=== PATIENT | male | born 1955 | race Hispanic/Latino ===

== ENCOUNTER 2018-01-28 16:11 | Emergency (ER) | payer OTHER ==
[2018-01-28 17:30] LABS: #Basophils 0.1 thou/uL (0.0-0.2); #Eosinphils 0.1 thou/uL (0.0-0.7); #Monocytes 0.7 thou/uL (0.11-0.59); #Neutrophils 6.4 thou/uL (1.40-6.50); %Basophils 0.6 % (0.0-1.0); %Eosinophils 0.9 % (0.0-10.0); %Lymphocytes 21.2 % (21.0-51.0); %Neutrophils 69.2 % (42.0-75.0); Hemoglobin 14.8 g/dL (14.0-18.0); Mean Corpuscular HGB CONC 34.7 g/dL (32.0-36.0); Mean Corpuscular Hemoglobin 35.3 pg (27.0-31.0); Mean Platelet Volume 8.7 fL (7.4-10.4); Platelet Count 166 thou/uL (130-400); RBC Distribution Width 12.3 % (11.5-14.5); White Blood Cell (WBC) Count 9.2 thou/uL (4.8-10.8)
--- NOTE | 2018-01-28 17:32 | RAD ---
THREE VIEWS OF THE RIGHT HAND: 01/28/18 INDICATION: Right hand pain and swelling. COMPARISON: Prior exam dated 11/17/14. There is stable healed deformity involving the small finger metacarpal shaft. There is worsening of s ubchondral cyst formation involving the middle phalangeal head of the right ring finger. There is edda e periarticular change involving the DIP joints of the index finger and small finger. There is soft t issue prominence seen involving the right ring finger DIP joint. No additional acute osseous abnormal ity is evident. The lucency and sclerosis seen within the central aspect of the index finger middle p halanx is unchanged and may be related to prior trauma. IMPRESSION: Worsening periarticular erosive change at the DIP joints of the right hand with a prominent subchondr al cyst seen involving the right ring finger middle phalangeal head with soft tissue prominence. Find ings can be seen with entity such as psoriatic or Aishwarya inflammatory arthritis. It can also be seen with an erosive osteoarthropathy. With the soft tissue prominence of the ring digits entity such as gout cannot be excluded. POS: [facility]
--- NOTE | 2018-01-28 17:35 | RAD ---
THREE VIEWS OF THE RIGHT WRIST 01/28/18 INDICATION: Right wrist pain and swelling. COMPARISON: Prior radiograph examination of the right hand dated 11/17/14. FINDINGS: There are vascular calcifications within the soft tissues. The wrist carpus appears intact. There is mild degenerative change at the carpal metacarpal articulation of the fifth digit. There is healed de formity involving the small finger metacarpal shaft. IMPRESSION: 1. No acute osseous abnormality. 2. Remote posttraumatic change involving the hamate-fifth metacarpal articulation as well as the small digit metacarpal shaft. POS: [facility]
[2018-01-28 17:47] LABS: ALT (SGPT) 16 U/L (8-55); AST (SGOT) 17 U/L (5-34); Albumin 3.9 g/dL (3.4-4.8); Alkaline Phosphatase 67 U/L (40-150); Anion Gap 12 mmol/L (10-20); BUN (Urea Nitrogen) 13 mg/dL (8.4-25.7); Bilirubin, Total 0.5 mg/dL (0.2-1.2); CRP (Inflammatory) 7.6 mg/dL (= or < 0.5); Calc. Creatinine Clearance 0 mL/min (70-130); Carbon Dioxide 23 mmol/L (23-31); Chloride 108 mmol/L (98-107); Estimated GFR-MDRD 80; Globulin 3.3 g/dL (2.4-3.5); Glucose 104 mg/dL (80-115); Potassium 3.9 mmol/L (3.5-5.1); Protein, Total 7.2 g/dL (5.8-8.1); Sodium 139 mmol/L (136-145); Uric Acid 8.4 mg/dL (3.5-7.2)
[2018-01-28] MEDS ORDERED: Acetaminophen 500 MG TAB ONE (17:55)
== END 2018-01-28 18:23 | disposition home or self-care (01) ==
LOC: ERS 16:11
DX: L03.113 Cellulitis of right upper limb (principal); M10.9 Gout, unspecified; I10 Essential (primary) hypertension; F17.210 Nicotine dependence, cigarettes, uncomplicated; Z71.6 Tobacco abuse counseling; Z86.73 Personal history of transient ischemic attack (TIA), and cerebral infarction without residual deficits; Z79.899 Other long term (current) drug therapy
CPT/HCPCS: 36415; 80053; 84550; 85025; 85652; 86140; 99406

== ENCOUNTER 2018-12-09 22:30 | Observation (INO) | payer OTHER ==
[2018-12-09 23:20] LABS: #Lymphocytes 1.2 thou/uL (1.20-3.40); #Monocytes 0.9 thou/uL (0.11-0.59); #Neutrophils 11.2 thou/uL (1.40-6.50); %Basophils 0.2 % (0.0-1.0); %Eosinophils 0.1 % (0.0-10.0); %Lymphocytes 9.2 % (21.0-51.0); %Neutrophils 83.5 % (42.0-75.0); Hemoglobin 16.4 g/dL (14.0-18.0); Mean Corpuscular HGB CONC 35.1 g/dL (32.0-36.0); Mean Corpuscular Hemoglobin 35.2 pg (27.0-31.0); Mean Platelet Volume 9.1 fL (7.4-10.4); Platelet Count 182 thou/uL (130-400); RBC Distribution Width 11.9 % (11.5-14.5); Red Blood Cell (RBC) Count 4.67 mill/uL (4.70-6.10); White Blood Cell (WBC) Count 13.4 thou/uL (4.8-10.8)
[2018-12-09 23:34] LABS: ALT (SGPT) 32 U/L (8-55); AST (SGOT) 21 U/L (5-34); Albumin 4.1 g/dL (3.4-4.8); Alkaline Phosphatase 70 U/L (40-150); Anion Gap 14 mmol/L (10-20); BUN (Urea Nitrogen) 15 mg/dL (8.4-25.7); CK (CPK) 173 U/L (30-200); Calc. Creatinine Clearance 0 mL/min (70-130); Calcium 9.1 mg/dL (7.8-10.44); Carbon Dioxide 27 mmol/L (23-31); Chloride 95 mmol/L (98-107); Estimated GFR-MDRD 65; Globulin 2.9 g/dL (2.4-3.5); Glucose 142 mg/dL (80-115); Potassium 5.2 mmol/L (3.5-5.1); Sodium 131 mmol/L (136-145)
--- NOTE | 2018-12-10 00:02 | CT ---
CT Brain WO Con HISTORY: Head injury status post fall COMPARISON: 02/17/2013 exam FINDINGS: The ventricular and cisternal system shows mild atrophy. There are no signs of intracerebra l hemorrhage or extra-axial fluid collections. The mastoid air cells and visualized sinuses are clear. IMPRESSION: No acute intracranial abnormalities.
[2018-12-10 01:15] LABS: Bilirubin Negative (Negative); Blood, Urine Negative (Negative); Clarity CLEAR (Clear); Glucose, Urine (Dipstick) Negative (Negative); Leukocyte Negative (Negative); Nitrite Negative (Negative); Protein, Urine (Dipstick) Negative (Neg-Trace); Specific Gravity, Urine 1.011 (1.002-1.036); Urobilinogen 0.2 mg/dL (0.2-1.0)
[2018-12-10 02:49] VITALS: BMI 39.1
--- NOTE | 2018-12-10 06:43 | PDOC.EVN ---
Event Note - Event Note Event Note: elevated d-dimer, ct angio ordered r/o pe
--- NOTE | 2018-12-10 07:37 | RAD ---
AP view chest HISTORY: 63-year-old with history of pneumonia. AP view chest demonstrates interval development of elevation of the right hemidiaphragm. This may rep resent right hemidiaphragm paralysis. This was not present on the patient's previous radiograph from 02/17/2013. Cardiomegaly seen. No evidence of effusions, pneumonia or pneumothorax seen. Right acromioclavicular joint degenerative changes seen. IMPRESSION: elevated right hemidiaphragm.
--- NOTE | 2018-12-10 08:08 | CT ---
CT PULMONARY ANGIOGRAM WITH IV CONTRAST AND 3-D POSTPROCESSING: HISTORY:Chest pain, cough, dizziness FINDINGS: There is good contrast opacification of the pulmonary arterial vasculature without filling defects to suggest pulmonary embolism. The thoracic aorta is well opacified without aneurysm or dissection. No pleural or pericardial effusions are seen. No pneumothoraces, focal areas of consolidation or lung nodules are noted. There is elevation of the right hemidiaphragm with adjacent atelectatic change. There are degenerative changes in the spine. Upper abdominal tomograms demonstrate right renal cysts. IMPRESSION: No CT evidence of pulmonary embolism.
[2018-12-10] MEDS ORDERED: ISOVUE-370 76%-LOCM 1 ML ONE (09:47)
[2018-12-10] MEDS ORDERED: Lidocaine 2% Viscous Solution 10 ML, Aluminum & Magnesium Hydroxide 30 ML SSW SCH (10:00)
[2018-12-10 10:08] LABS: #Lymphocytes 1.7 thou/uL (1.20-3.40); %Basophils 0.3 % (0.0-1.0); %Eosinophils 0.2 % (0.0-10.0); %Lymphocytes 14.7 % (21.0-51.0); %Monocytes 8.2 % (0.0-10.0); %Neutrophils 76.6 % (42.0-75.0); Hemoglobin 15.6 g/dL (14.0-18.0); Mean Corpuscular HGB CONC 34.4 g/dL (32.0-36.0); Mean Corpuscular Hemoglobin 34.5 pg (27.0-31.0); Mean Platelet Volume 9.3 fL (7.4-10.4); Platelet Count 168 thou/uL (130-400); RBC Distribution Width 12.1 % (11.5-14.5); Red Blood Cell (RBC) Count 4.52 mill/uL (4.70-6.10); White Blood Cell (WBC) Count 11.7 thou/uL (4.8-10.8)
[2018-12-10] MEDS ORDERED: Acetaminophen 325 MG TAB PO PRN (10:19)
[2018-12-10] MEDS ORDERED: Senokot S 8.6-50 MG TAB PO PRN (10:19)
[2018-12-10] MEDS ORDERED: Acetaminophen 650 MG Suppository PR PRN (10:19)
[2018-12-10 10:35] LABS: Anion Gap 15 mmol/L (10-20); BUN (Urea Nitrogen) 14 mg/dL (8.4-25.7); Calc. Creatinine Clearance 87 mL/min (70-130); Calcium 8.8 mg/dL (7.8-10.44); Carbon Dioxide 23 mmol/L (23-31); Chloride 101 mmol/L (98-107); Estimated GFR-MDRD 60; Glucose 129 mg/dL (80-115); Sodium 135 mmol/L (136-145)
[2018-12-10] MEDS: Sodium Chloride 0.9% 1,000 ML IV SCH (11:21)
--- NOTE | 2018-12-10 15:04 | HP ---
PRIMARY CARE PROVIDER: [facility]. CHIEF COMPLAINT: Generalized weakness. HISTORY OF PRESENT ILLNESS: Mr. Parham is a pleasant 63-year-old gentleman, who was seen at [facility] on 12/10/2018. Two nights ago, he ate tacos. Approximately 45 minutes later, he started vomiting. He reports vomiting all night that night and the next as well, which is yesterday. He denies any blood in the stools. He denies any diarrhea. He denies any chest pain or shortness of breath. Yesterday he tried to stand up and he felt lightheaded and fell to the ground. He denies any loss of consciousness or head trauma. He came to the emergency room because of ongoing vomiting as well as generalized weakness. He reports that he feels slightly better at this time. REVIEW OF SYSTEMS: All other systems reviewed and found to be negative. PAST MEDICAL HISTORY: 1. Gout. 2. Hypertension. 3. Ischemic cerebrovascular accident. 4. Chronic dizziness. PAST SURGICAL HISTORY: None. SOCIAL HISTORY: The patient drinks 3 to 4 beers a day. He denies any tobacco use or recreational drug use. FAMILY HISTORY: Significant for myocardial infarction in his father and coronary artery bypass graft in his brother and sister. ALLERGIES: NO KNOWN DRUG ALLERGIES. CURRENT MEDICATIONS: 1. Lisinopril 20 mg daily. 2. Nexium 20 mg daily. 3. Naproxen 500 mg 2 times a day. PHYSICAL EXAMINATION: GENERAL: On examination, Mr. Parham is awake and alert, not in acute distress. VITAL SIGNS: Blood pressure is 134/72, pulse is 95, respiratory rate is 18, and oxygen saturation is 93% on room air. He is afebrile. There is no orthostatic hypotension. EYES: No scleral icterus, no conjunctival pallor. ENT: Dry mucosal membranes. No oropharyngeal erythema or exudates. NECK: Supple, nontender, trachea is midline. RESPIRATORY: Accessory muscles of breathing are not active. Chest wall movements are symmetric bilaterally. Lungs are clear to auscultation without wheeze, rhonchi, or crepitations. CARDIOVASCULAR: S1 and S2 are heard, regular. Peripheral pulses palpable. No carotid bruit. No pericardial rub. ABDOMEN: Soft, nontender. Bowel sounds heard. No hepatomegaly. No splenomegaly. SKIN: No rashes or subcutaneous nodules. LYMPHATIC: No cervical lymphadenopathy. NEUROLOGIC: Cranial nerves 2 through 12 are intact. No focal motor or sensory deficits. Deep tendon reflexes 2+. Plantar reflexes downgoing bilaterally. MUSCULOSKELETAL: Power is 5/5 in all 4 extremities. BODY HABITUS: Obese, with a BMI of 39. LABORATORY DATA: Mr. Parham's labs and investigations were reviewed. I reviewed his electrocardiogram, which shows sinus tachycardia and low-voltage QRS, no ST changes to suggest an acute coronary syndrome. I also reviewed his chest x-ray, which does not show any pulmonary infiltrates. He also has an elevated right hemidiaphragm. Noncontrast CT scan of the brain did not show any acute intracranial abnormalities. CT angiogram of the chest did not show any evidence of pulmonary embolism. He has leukocytosis with 11,700 white cells, of which 76% are neutrophils, normal hemoglobin, normal platelet count, elevated D-dimer of 13.59, decreased sodium of 135, normal potassium, normal creatinine, normal LFTs, and normal lipase. Procalcitonin level is 0.04. Urinalysis is positive for trace ketones. ASSESSMENT AND PLAN: Mr. Parham is a pleasant 63-year-old gentleman, who was seen at [facility] on 12/10/2018. His problem list includes: 1. Chain vomiting: Most likely secondary to viral gastroenteritis or food poisoning. The patient will be admitted to the hospital for further management including intravenous fluids. There is no evidence of infection at this time, we will not start him on antibiotics. 2. Dizziness: This appears to be improving. Given the low-voltage QRS complexes, we will check 2D echocardiogram to rule out pericardial effusion. 3. Hypertension: We will monitor vital signs and titrate antihypertensives as needed. 4. Gout: This appears to be stable. Many thanks for allowing me to participate in your patient's care. Please feel free to contact me with any questions or concerns. LEVEL OF RISK: High. LEVEL OF COMPLEXITY: High. Job ID: [id number]
[2018-12-11] MEDS: Sodium Chloride 0.9% 1,000 ML IV SCH ×2 (08:52)
[2018-12-11] MEDS ORDERED: Non-Formulary Item 1 EACH (Esomeprazole Magnesium [Nexium] 40 MG) PO SCH (09:00)
[2018-12-11] MEDS ORDERED: Naproxen 500 MG TAB PO SCH (09:00)
[2018-12-11] MEDS ORDERED: Lisinopril 10 MG TAB PO SCH (09:00)
[2018-12-11] MEDS ORDERED: Enoxaparin Sodium 40 MG/0.4 ML SYRINGE SC SCH (09:00)
[2018-12-11 15:31] LABS: #Basophils 0.1 thou/uL (0.0-0.2); #Eosinphils 0.1 thou/uL (0.0-0.7); #Lymphocytes 1.9 thou/uL (1.20-3.40); #Monocytes 0.8 thou/uL (0.11-0.59); #Neutrophils 5.6 thou/uL (1.40-6.50); %Basophils 0.7 % (0.0-1.0); %Eosinophils 0.8 % (0.0-10.0); %Lymphocytes 22.5 % (21.0-51.0); %Monocytes 9.4 % (0.0-10.0); %Neutrophils 66.6 % (42.0-75.0); Mean Corpuscular HGB CONC 33.8 g/dL (32.0-36.0); Mean Corpuscular Hemoglobin 34.9 pg (27.0-31.0); Platelet Count 128 thou/uL (130-400); RBC Distribution Width 12.2 % (11.5-14.5); Red Blood Cell (RBC) Count 3.74 mill/uL (4.70-6.10); White Blood Cell (WBC) Count 8.4 thou/uL (4.8-10.8)
--- NOTE | 2018-12-11 15:48 | PDOC.PN ---
- Subjective Encounter Start Date: 12/11/18 Encounter Start Time: 09:00 - Objective Vital Signs & Weight: Vital Signs (12 hours) Temp Pulse Resp BP BP BP BP 12/11/18 11:37 98.5 F 62 18 131/61 127/62 123/58 L 12/11/18 09:19 148/74 H 12/11/18 07:45 98.7 F 67 18 148/74 H Pulse Ox 12/11/18 11:37 12/11/18 09:19 12/11/18 07:45 95 Weight Weight 220 lb 12.8 oz I&O: 12/10/18 12/11/18 12/12/18 06:59 06:59 06:59 Intake Total 50 890 Output Total 500 1075 Balance -450 -185 Result Diagrams: 12/11/18 15:24 12/10/18 09:53 Dx/Plan - Plan * .
[2018-12-11 15:53] LABS: Anion Gap 12 mmol/L (10-20); BUN (Urea Nitrogen) 13 mg/dL (8.4-25.7); Calc. Creatinine Clearance 105 mL/min (70-130); Carbon Dioxide 22 mmol/L (23-31); Chloride 107 mmol/L (98-107); Estimated GFR-MDRD 74; Glucose 127 mg/dL (80-115); Potassium 3.9 mmol/L (3.5-5.1); Sodium 137 mmol/L (136-145)
[2018-12-11 16:20] VITALS: BP 157/69; TEMP 98.2
--- NOTE | 2018-12-11 22:58 | DIS ---
DATE OF ADMISSION: 12/10/2018 DATE OF DISCHARGE: 12/11/2018 PRIMARY CARE PROVIDER: Precious Romano in [place]. DISCHARGE DIAGNOSES: 1. Gastroenteritis. 2. Dizziness. 3. Leukocytosis. 4. Hyponatremia. 5. Hyperkalemia. CONDITION OF PATIENT ON THE DAY OF DISCHARGE: Stable. I assessed Mr. Parham on the day of discharge. He denies any chest pain or shortness of breath. Nausea and vomiting have resolved. S1 and S2 are heard, regular. Lungs are clear to auscultation bilaterally. DISCHARGE MEDICATIONS: No change was made to his pre-admission home medications as dictated on my history and physical note dated December 10, 2018. HOSPITAL COURSE: Mr. Parham is a pleasant 63-year-old gentleman, who was admitted to [facility] on December 10, 2018, for hypotension, nausea and vomiting. CT angiogram of the chest done at the time of admission did not show any evidence of pulmonary embolism. Nausea and vomiting improved with antiemetics. He also had 2D echocardiogram, which showed left ventricular ejection fraction of 55% to 60%, normal-sized right ventricular cavity, moderately dilated left atrium, normal right atrium size, trace mitral regurgitation, and mild tricuspid regurgitation. He is being discharged home in a stable condition. Post-discharge followup: He is advised to follow up with his primary care provider in 3 to 5 days. Many thanks for allowing me to participate in your patient's care. Please feel free to contact me with any questions or concerns. On the day of discharge, he has white count 8400, hemoglobin 13, platelet count 128,000, decreased sodium of 135, normal potassium and normal creatinine. He was advised to have his CBC rechecked in 3 to 5 days time through his primary care provider because of low platelets. POST-DISCHARGE FOLLOWUP: With PCP. DISCHARGE DESTINATION: Home. Job ID: [id number] [facility]
--- NOTE | 2018-12-13 16:52 | EKG ---
Test Reason : Blood Pressure : / mmHG Vent. Rate : 101 BPM Atrial Rate : 101 BPM P-R Int : 176 ms QRS Dur : 074 ms QT Int : 330 ms P-R-T Axes : 044 072 007 degrees QTc Int : 427 ms Sinus tachycardia Low voltage QRS Inferior infarct , age undetermined Abnormal ECG Confirmed by JOSSUE FELIX M.D. ([id number]), editorial writer YURIDIA RAMSEY ([id number]) on 12/13/2018 4:52:09 PM Referred By: Confirmed By:JOSSUE FELIX M.D.
== END 2018-12-11 17:50 | disposition home or self-care (01) ==
LOC: ERS 22:30 → 2NO 12-10 02:15
PROVIDERS: ADMIT Hospitalist; ATTEND Hospitalist
DX: K52.9 Noninfective gastroenteritis and colitis, unspecified (principal); R42 Dizziness and giddiness; E87.1 Hypo-osmolality and hyponatremia; E87.5 Hyperkalemia; I11.9 Hypertensive heart disease without heart failure; M10.9 Gout, unspecified; D72.829 Elevated white blood cell count, unspecified; Z79.899 Other long term (current) drug therapy; Z86.73 Personal history of transient ischemic attack (TIA), and cerebral infarction without residual deficits
CPT/HCPCS: 36415; 70450; 71045; 71275; 80048; 80053; 81003; 82550; 83690; 84145; 84484; 85025; 85379; 93005; 93306; 96360; 96361; 96372; G0378; J1650; Q9966

== ENCOUNTER 2018-12-22 12:23 | Emergency (ER) | payer OTHER ==
--- NOTE | 2018-12-22 13:07 | RAD ---
EXAM: Chest one view: HISTORY: Shortness of breath left lower extremity pain, without, sepsis alert, vomiting COMPARISON: 12/10/2018 FINDINGS: Mild stable linear stranding in the left base. Heart size: Within normal limits. Lungs: Clear of acute process. No evidence for pneumonia, pleural effusion, acute edema, or pneumothorax, or other significant acute process. IMPRESSION: No significant acute intrathoracic disease.
[2018-12-22 13:54] LABS: #Eosinphils 0.1 thou/uL (0.0-0.7); #Lymphocytes 1.5 thou/uL (1.20-3.40); #Monocytes 0.9 thou/uL (0.11-0.59); #Neutrophils 11.6 thou/uL (1.40-6.50); %Basophils 0.1 % (0.0-1.0); %Eosinophils 0.4 % (0.0-10.0); %Lymphocytes 10.5 % (21.0-51.0); %Monocytes 6.7 % (0.0-10.0); %Neutrophils 82.4 % (42.0-75.0); Hemoglobin 14.2 g/dL (14.0-18.0); Mean Corpuscular Hemoglobin 35.6 pg (27.0-31.0); Mean Platelet Volume 9.3 fL (7.4-10.4); Platelet Count 258 thou/uL (130-400); RBC Distribution Width 12.1 % (11.5-14.5); Red Blood Cell (RBC) Count 3.99 mill/uL (4.70-6.10); White Blood Cell (WBC) Count 14.1 thou/uL (4.8-10.8)
[2018-12-22 14:14] LABS: ALT (SGPT) 13 U/L (8-55); AST (SGOT) 11 U/L (5-34); Albumin 3.6 g/dL (3.4-4.8); Alkaline Phosphatase 72 U/L (40-150); Anion Gap 15 mmol/L (10-20); BUN (Urea Nitrogen) 11 mg/dL (8.4-25.7); CK (CPK) 30 U/L (30-200); Calc. Creatinine Clearance 0 mL/min (70-130); Calcium 9.4 mg/dL (7.8-10.44); Carbon Dioxide 25 mmol/L (23-31); Chloride 99 mmol/L (98-107); Estimated GFR-MDRD 78; Globulin 3.5 g/dL (2.4-3.5); Glucose 112 mg/dL (80-115); Potassium 3.6 mmol/L (3.5-5.1); Protein, Total 7.1 g/dL (5.8-8.1); Sodium 135 mmol/L (136-145)
[2018-12-22] MEDS ORDERED: Ketorolac Tromethamine 60 MG/2 ML VIAL ONE (18:20)
--- NOTE | 2018-12-22 18:57 | RAD ---
EXAM: 4 views of the left knee HISTORY: Knee pain; history of gout COMPARISON: None FINDINGS: No knee effusion is seen. There is no evidence of acute fracture or dislocation. Small tric ompartmental osteophytes are seen. No osseous erosions are seen. Mild soft tissue swelling is present. IMPRESSION: Mild degenerative changes without evidence of acute osseous abnormality.
--- NOTE | 2018-12-22 18:59 | RAD ---
EXAM: 3 views of the left foot HISTORY: Left lower surgery pain. History of gout. COMPARISON: None FINDINGS: 3 views of the left foot shows no evidence of acute fracture or dislocation. Mild soft tiss ue swelling is seen. A small para marginal erosion is seen along the great toe metatarsophalangeal joint. This was not seen on the prior examination. There are also possible erosions involving the pro ximal phalanges near the metatarsophalangeal joints of the second and third toes. Degenerative changes without erosions are seen in the midfoot. IMPRESSION: Erosions involving the first, second, and third toes may be secondary to gout.
== END 2018-12-22 20:17 | disposition home or self-care (01) ==
LOC: ERS 12:23
DX: M10.9 Gout, unspecified (principal); M13.862 Other specified arthritis, left knee; I10 Essential (primary) hypertension; Z86.73 Personal history of transient ischemic attack (TIA), and cerebral infarction without residual deficits; Z79.899 Other long term (current) drug therapy
CPT/HCPCS: 36415; 71045; 80053; 82550; 83605; 84484; 85025; 85652; 86140; 93005; 96372; J1885

== ENCOUNTER 2022-10-15 13:02 | Emergency (ER) | payer OTHER ==
[2022-10-15 15:02] LABS: #Basophils 0.1 thou/uL (0.0-0.2); #Eosinphils 0.2 thou/uL (0.0-0.7); #Lymphocytes 2.7 thou/uL (1.20-3.40); #Monocytes 0.6 thou/uL (0.11-0.59); #Neutrophils 5.1 thou/uL (1.40-6.50); %Basophils 1.1 % (0.0-1.0); %Eosinophils 1.7 % (0.0-10.0); %Lymphocytes 31.2 % (21.0-51.0); %Monocytes 6.9 % (0.0-10.0); Hemoglobin 17.4 g/dL (14.0-18.0); Mean Corpuscular HGB CONC 33.5 g/dL (32.0-36.0); Mean Corpuscular Hemoglobin 33.6 pg (27.0-31.0); Mean Platelet Volume 10.2 fL (7.4-10.4); Platelet Count 175 10x3/uL (130-400); RBC Distribution Width 12.2 % (11.5-14.5); Red Blood Cell (RBC) Count 5.18 mill/uL (4.70-6.10); White Blood Cell (WBC) Count 8.7 10x3/uL (4.8-10.8)
[2022-10-15 15:23] LABS: ALT (SGPT) 16 U/L (8-55); AST (SGOT) 20 U/L (5-34); Albumin 4.1 g/dL (3.4-4.8); Alkaline Phosphatase 85 U/L (40-110); Anion Gap 15 mmol/L (10-20); BUN (Urea Nitrogen) 10 mg/dL (8.4-25.7); Bilirubin, Total 0.5 mg/dL (0.2-1.2); Calc. Creatinine Clearance 0 mL/min (70-130); Calcium 9.3 mg/dL (7.8-10.44); Carbon Dioxide 24 mmol/L (23-31); Chloride 104 mmol/L (98-107); Estimated GFR 78; Globulin 3.2 g/dL (2.4-3.5); Glucose 89 mg/dL (80-115); Potassium 4.2 mmol/L (3.5-5.1); Protein, Total 7.3 g/dL (5.8-8.1); Sodium 139 mmol/L (136-145)
[2022-10-15 15:45] LABS: CKMB 1.2 ng/mL (0-6.6)
[2022-10-15] MEDS ORDERED: hydrALAZINE 25 MG TAB ONE (15:58)
[2022-10-15 17:26] LABS: Bilirubin Negative (Negative); Blood, Urine Negative (Negative); Clarity Clear (Clear); Glucose, Urine (Dipstick) Normal (Negative); Ketone, Urine Negative (Negative); Leukocyte Negative Leu/uL (Negative); Nitrite Negative (Negative); Protein, Urine (Dipstick) Negative (Neg-Trace); Specific Gravity, Urine 1.013 (1.002-1.036); Urobilinogen Normal mg/dL (Less than 2); pH, Urine 5.5 (5.0-9.0)
== END 2022-10-15 18:35 | disposition home or self-care (01) ==
LOC: ERS 13:02
DX: I10 Essential (primary) hypertension (principal); Z86.73 Personal history of transient ischemic attack (TIA), and cerebral infarction without residual deficits; M10.9 Gout, unspecified; F17.210 Nicotine dependence, cigarettes, uncomplicated; Z79.899 Other long term (current) drug therapy
CPT/HCPCS: 36415; 80053; 81003; 82553; 83880; 84484; 85025; 93005

== ENCOUNTER 2022-10-29 12:38 | Outpatient (CLI) | payer MEDICARE, OTHER | END 2022-10-29 12:39 | disposition home or self-care (01) | PROVIDERS: ATTEND Psychiatry & Neurology Neurology | DX: R55 Syncope and collapse (principal) | CPT/HCPCS: 93225; 93226 ==